=== PATIENT | male | born 1975 | race Caucasian/White ===

== ENCOUNTER 2023-09-23 05:28 | Observation (INO) ==
--- NOTE | 2023-09-03 10:30 | PAT Medication Instructions ---
Medication Instructions Date of Service September 03, 2023 Home Medications escitalopram oxalate 10 mg tablet (Lexapro) 10 mg PO QAM escitalopram oxalate 20 mg tablet (Lexapro) 20 mg PO QAM Take morning of surgery With a small sip of water, OTHERWISE NOTHING TO EAT OR DRINK AFTER MIDNIGHT: escitalopram oxalate 10 mg tablet (Lexapro) 10 mg PO QAM escitalopram oxalate 20 mg tablet (Lexapro) 20 mg PO QAM Other Notes If you have any questions please call us at [phone] or [phone] or [phone] or [phone]
--- NOTE | 2023-09-07 11:09 | Anesthesiology Consultation ---
Date of Service September 07, 2023 Assessment & Plan (1) Encounter for pre-operative examination: Infectious disease screening: Per assessment on 09/07/23: No known infectious disease contacts or current infectious disease symptoms. No noted recent Covid positive test result. Chart Review Chart Review: Acceptable Risk for Surgery and Patient seen in Pre Admission Testing Teaching & Discussion Pre-Anesthesia Teaching/Discussion Notes: Instructed NPO after midnight before surgery,except medications with 15 cc of water. Medication instructions provided according to the PAT guidelines. History Surgery Operation Date: 09/23/23 07:15 Proposed Procedures p T10-T11 Posterior Lumbar Decompression, Instrumentation and Posterior Fusion, Local Bone Graft, Spinal Cord Monitoring - Adilson Neely MD Height/Weight Height: 5 ft 6 in Weight: 87.2 kg Allergies Allergy/AdvReac Type Severity Reaction Status Date / Time No Known Allergies Allergy Verified 08/27/23 10:33 Medications Home Medications Medication Instructions Recorded Confirmed Last Taken escitalopram oxalate 10 mg tablet 10 mg PO QAM 08/27/23 08/27/23 Unknown (Lexapro) escitalopram oxalate 20 mg tablet 20 mg PO QAM 08/27/23 08/27/23 Unknown (Lexapro) Past Medical History Medical History Anxiety History of COVID-19 04/2020- cold symptoms, resolved Exercise / Class Metabolic Activity II 4-5 Yardwork/Stairs/Walk up hill (one FS: No CP, no SOB) Past Surgical History Surgical History History of esophagogastroduodenoscopy (EGD) History of uvulopalatopharyngoplasty R/t hemangioma (Age 8) Hx of arthroscopy of left knee Hx of tonsillectomy Nausea and vomiting after administration of anesthetic agent Past Anesthesia History No Hx of Anesthesia Complications and No Family Hx of Anesthesia Complications History of PONV No Hx of Motion Sickness and History of PONV Social History Smoking Status: Never smoker Do You Dip or Chew Tobacco: No Hx Alcohol Use: No Hx Substance Use: No substance use type: does not use Review of Systems Patient denies chest pain, shortness of breath, dyspnea on exertion, fever, chills, cough, wheezing, palpitations. Physical Exam Vital Signs BP 115/78 P 75 TEMP 98.3 SP02 95%RA RESP 16 Physical Full cervical extension range of motion. Full TMJ range of motion. TMD > 3.5 finger breaths Mallampati Score 1 Dentition: missing molars, + cap Lungs: clear throughout to auscultation Cardiac: regular rate and rhythm, no murmurs noted Spine: normal Carotid arteries: negative bruit Extremities: no LE edema Trimmed san Lab Results Anesthesia Preop Results Results Anesthesia Widget: WBC 5.59 K/ul (4.8-10.8) 09/07/23 Hgb 15.6 g/dl (14.0-18.0) 09/07/23 Hct 45.3 % (42.0-52.0) 09/07/23 Plt 242 K/uL (130-400) 09/07/23 Na 139 mmol/L (136-145) 09/07/23 K 4.1 mmol/L (3.5-5.1) 09/07/23 Cl 104 mmol/L (98-107) 09/07/23 CO2 28 mmol/L (21-32) 09/07/23 BUN 15 mg/dl (6-23) 09/07/23 Creat 1.10 mg/dl (0.6-1.4) 09/07/23 Glucose Level 72 mg/dl (70-99(Fasting)) 09/07/23 PT 10.9 Seconds (9.0-12.0) 09/07/23 PTT 28 Seconds (21-31) 09/07/23 INR 1.0 (0.9-1.1) 09/07/23 Blood Type A Positive 09/07/23 Antibody Screen NEGATIVE 09/07/23 Testing Electrocardiogram Date: 09/07/23 SB at 59bpm. Rightward axis. Low voltage QRS.
[2023-09-23] MEDS: LR 60ML/HR IV SCH (06:08)
[2023-09-23] MEDS: LR 15ML/HR IV SCH (06:08)
[2023-09-23] MEDS ORDERED: HYDROmorphone INJ 1 MG/ML SYRINGE IV PRN (06:28)
[2023-09-23] MEDS ORDERED: fentaNYL citrate PF 100 MCG/2 ML VIAL IV PRN (06:28)
[2023-09-23] MEDS ORDERED: ONDANSETRON INJ 2 MG/ML 2 ML VIAL IV PRN ×2 (06:28→14:15)
[2023-09-23] MEDS ORDERED: PROMETHAZINE HCL 6.25 MG in SODIUM CHLORIDE 0.9% 50 ML IV PRN (06:28)
[2023-09-23] MEDS ORDERED: ATROPINE SULFATE 0.1 MG/ML 10ML SYR IV PRN (06:28)
[2023-09-23] MEDS ORDERED: ePHEDrine sulfate 50 MG/ML AMP IV PRN (06:28)
[2023-09-23] MEDS ORDERED: HYDROmorphone INJ 2 MG/ML SYR/VIAL IV PRN (06:28)
[2023-09-23] MEDS ORDERED: MIDAZOLAM HCL 1 MG/ML 2ML VIAL ONE (07:02)
[2023-09-23] MEDS ORDERED: SUCCINYLCHOLINE CHLORIDE 20 MG/ML 10 ML VIAL IV ONE (07:02)
[2023-09-23] MEDS ORDERED: ROCURONIUM BROMIDE 10 MG/ML 5 ML VIAL IV ONE ×2 (07:02→09:09)
[2023-09-23] MEDS ORDERED: PROPOFOL IV EMULSION 10 MG/ML 20 ML VIAL IV ONE ×8 (07:02→11:57)
[2023-09-23] MEDS ORDERED: fentaNYL citrate PF 100 MCG/2 ML VIAL ONE ×2 (07:02→08:54)
[2023-09-23] MEDS ORDERED: LIDOCAINE 2% 2 ML VIAL/AMP(20MG/ML) INFIL ONE (07:02)
[2023-09-23] MEDS ORDERED: KETAMINE HCL INJ 50 MG/ML 10 ML VIAL ONE (07:12)
[2023-09-23] MEDS ORDERED: ACETAMINOPHEN 1000 MG/100 ML IV IV ONE (07:12)
[2023-09-23] MEDS ORDERED: DexMEDEtomidine HCL IV 100 MCG/ML VIAL IV ONE (07:12)
--- NOTE | 2023-09-23 07:17 | History & Physical Bridge Note ---
Date of Service September 23, 2023 History & Physical Bridge Note I have examined the patient, reviewed the History & Physical and in the interval since the performance of the History & Physical I have noted the following changes of clinical significance: no changes noted Surgical procedure to include T10-11 decompression, instrumentation and fusion.
[2023-09-23] MEDS ORDERED: diphenhydrAMINE 50 MG/ML VIAL ONE (07:19)
[2023-09-23] MEDS: ceFAZolin 2000MG 2,000 MG/15 ML SYR IV SCH (08:00)
[2023-09-23] MEDS ORDERED: GLYCOPYRROLATE 0.2 MG/ML VIAL ONE (09:12)
[2023-09-23] MEDS ORDERED: DEXAMETHASONE SOD INJ 4 MG/ML VIAL ONE (10:05)
[2023-09-23] MEDS ORDERED: ONDANSETRON INJ 2 MG/ML 2 ML VIAL ONE (10:05)
[2023-09-23] MEDS ORDERED: ceFAZolin 330 MG/ML 1 GM VIAL ONE (12:00)
[2023-09-23] MEDS: THROMBIN 5000 UNITS KIT ONE (12:00)
[2023-09-23] MEDS: VANCOMYCIN HCL 1000MG/20ML VIAL ONE (12:00)
[2023-09-23] MEDS: ceFAZolin 2000MG 2,000 MG/15 ML SYR IV ONE (12:00)
[2023-09-23] MEDS: GELATIN SPONGE 12-7MM ONE (12:35)
[2023-09-23] MEDS: BUPIVACAINE/EPINEPHRINE 0.5% MPF 1:200,000 30 ML VIAL ONE (12:35)
[2023-09-23] MEDS: FLOSEAL HEMOSTATIC MATRIX 10ML TOP ONE (12:35)
[2023-09-23] MEDS ORDERED: SUGAMMADEX SODIUM 200 MG/2 ML VIAL IV ONE (12:35)
[2023-09-23] MEDS ORDERED: HYDROmorphone INJ 2 MG/ML SYR/VIAL ONE (12:53)
--- NOTE | 2023-09-23 13:16 | Post Operative Brief Note ---
PG Immediate Post Op with CF Date of Surgery September 23, 2023 Pre & Post Diagnosis Operation Date: 09/23/23 07:15 Pre-Op Diagnosis: 1. Myelopathy concurrent and due to spinal stenosis of thoracic region 2. Degenerative thoracic spinal stenosis Post-Op Diagnosis: 1. Myelopathy concurrent and due to spinal stenosis of thoracic region 2. Degenerative thoracic spinal stenosis I identified the patient and participated in the time-out.: Yes Procedure Operation Date: 09/23/23 07:15 Actual Procedures p T10-T11 Posterior Lumbar Decompression, Instrumentation, and Posterior Fusion with Local Bone Graft and Spinal Cord Monitoring(Not Applicable) - Adilson Neely MD Surgeon Adilson Neely MD Car Pusher none Estimated Blood Loss 100 Findings Consistent with Post-Op Diagnosis Specimens Specimen Description: No specimen per surgeon Drains Yarbrough Catheter (Inserted after induction of anesthesia by Nereyda Light RN; 10 cc in balloon; clear, yellow urine returned)
--- NOTE | 2023-09-23 13:18 | Fluoroscopy Report ---
FL lumbar spine 2-3V CLINICAL HISTORY: T10-T11 DECOMPRESSION COMPARISON STUDY: Thoracic spine MRI July 01, 2023. Thoracic spine CT August 21, 2023. FLUOROSCOPY TIME: 2 minutes and 46 seconds. Ka, r: 95.60 mGy FLUOROSCOPIC IMAGES: 8 FINDINGS: Fluoroscopy was provided during T10-T11 decompression and fusion. T10-T11 level was localiz ed with subsequent posterior decompression bilateral pedicle screw fusion. The hardware is intact. IMPRESSION: Fluoroscopy provided during T10-T11 decompression and fusion. ACT 112: Negative or not required by law. Electronically signed by: Adrian Pearson M.D. 09/23/2023 1:16 PM
[2023-09-23] MEDS ORDERED: HYDROmorphone INJ 0.5 MG/0.5 ML SYR IV PRN ×2 (14:15)
[2023-09-23] MEDS ORDERED: oxyCODONE HCL IR 5 MG TAB (IMMEDIATE RELEASE) PO PRN (14:15)
[2023-09-23] MEDS ORDERED: ACETAMINOPHEN 500 MG TAB PO PRN (14:15)
[2023-09-23] MEDS: SCOPOLAMINE 1 MG/72 HR TDSY PATCH TD ONE ×2 (14:28→15:07)
--- NOTE | 2023-09-23 15:01 | Anesthesiology Progress Note ---
Date of Service September 23, 2023 Anesthesia Post Procedure Vital Signs Vital Signs: Temp Pulse Pulse Resp BP Pulse Ox O2 Del Method 09/23/23 14:46 36.4 C L 57 L 16 125/80 94 Nasal Cannula 09/23/23 14:10 Nasal Cannula 09/23/23 14:10 36.6 C 56 L 14 120/77 93 Nasal Cannula 09/23/23 13:55 36.4 C L 59 L 16 118/78 97 Nasal Cannula 09/23/23 13:45 58 L 16 114/79 95 Nasal Cannula 09/23/23 13:35 57 L 18 132/87 97 Oxymask 09/23/23 13:25 56 L 16 131/82 99 Oxymask 09/23/23 13:15 57 L 18 117/91 98 Oxymask 09/23/23 13:09 36.2 C L 51 L 18 124/76 99 Oxymask 09/23/23 05:56 36.8 C 72 20 129/84 97 Room Air O2 Flow Rate 09/23/23 14:46 2 09/23/23 14:10 2 09/23/23 14:10 2 09/23/23 13:55 2 09/23/23 13:45 2 09/23/23 13:35 4 09/23/23 13:25 4 09/23/23 13:15 6 09/23/23 13:09 6 09/23/23 05:56 Transfer of Care Handoff Completed per policy Notes Mental Status: alert / awake / arousable and participated in evaluation Patient Amnestic to Procedure: Yes Nausea / Vomiting: adequately controlled Pain: adequately controlled Airway Patency, RR, SpO2: stable & adequate BP & HR: stable & adequate Hydration State: stable & adequate Anesthetic Complications: no major complications apparent
[2023-09-23] MEDS: ceFAZolin 1000MG 1,000 MG/7.5 ML SYR IV SCH (15:12)
[2023-09-23] MEDS ORDERED: CHECK SCOPOLAMINE PATCH PLACEMENT SCH (16:00)
[2023-09-23] MEDS: METOCLOPRAMIDE HCL INJ 5 MG/ML 2 ML VIAL IV SCH (16:12)
[2023-09-23] MEDS: oxyCODONE HCL IR 5 MG TAB (IMMEDIATE RELEASE) PO PRN (18:07)
[2023-09-24 06:58] LABS: BUN Creatinine Ratio 15.2 (10-20); Calcium 8.9 mg/dl (8.6-10.3); Creatinine Clr Calc Pharmacy 88.9 ml/min; Est GFR (African American) 96.8 ml/min; Est GFR (Non-African American) 83.5 ml/min; Potassium 4.5 mmol/L (3.5-5.1)
[2023-09-24] MEDS: ESCITALOPRAM OXALATE 20 MG TAB PO SCH (08:16)
[2023-09-24] MEDS: ESCITALOPRAM OXALATE 10 MG TAB PO SCH (08:16)
--- NOTE | 2023-09-24 09:56 | Orthopedic Progress Note ---
Date of Service September 24, 2023 Assessment & Plan (1) Status post spinal surgery: Overall, he is doing quite well today with good pain control to the thoracic spine/lower back/lower extremities. He will work with physical therapy later this morning to work on ambulation and range of motion exercises. He can be discharged home later this morning pending formal physical therapy evaluation and recommendations. He will follow-up in [address] Neely for postoperative management. Subjective . Clem was seen and evaluated this morning resting comfortably in no apparent distress. He notes that he does have postsurgical pain to the back but he does note some improvement of his radicular symptoms that he was experiencing preoperatively down his right leg. He also notes that the back does feel like a different type of pain. He notes that he has been out of bed and ambulating with no significant issues. He has yet to be seen by physical therapy this morning. He denies any other concerns today. Review of Systems All systems reviewed & are unremarkable except as noted in HPI & below. Physical Exam . On physical examination of the back as well as the lower extremity, dressings are clean, dry, intact. Motor and sensory function grossly intact to the bilateral lower extremities. Intact plantarflexion dorsiflexion bilaterally. +2 DP and PT pulse. Less than 2-second capillary refill. Normal sensation. Neurovascular intact. Results & Data Results & Data Laboratory Results . Diagnostic Findings . PG Care Time/CCT Total # of Minutes Spent Total Time Spent with Patient: Total time spent is greater than 50% in coordination of care (as documented) at patient's floor/unit and/or counseling patient: Coding Level of Care Code 51238 Post Operative Follow-Up Diagnoses Status post spinal surgery Z98.890
--- NOTE | 2023-09-24 09:57 | Discharge Summary ---
Date of Service September 24, 2023 Principal Diagnosis Same as "Discharge Diagnosis" noted below under Discharge Instructions. Discharge Exam . On physical examination of the back as well as the lower extremity, dressings are clean, dry, intact. Motor and sensory function grossly intact to the bilateral lower extremities. Intact plantarflexion dorsiflexion bilaterally. +2 DP and PT pulse. Less than 2-second capillary refill. Normal sensation. Neurovascular intact. Discharge Data Procedures Performed Operation Date: 09/23/23 07:15 Actual Procedures p T10-T11 Posterior Lumbar Decompression, Instrumentation, and Posterior Fusion with Local Bone Graft and Spinal Cord Monitoring(Not Applicable) - Adilson Neely MD Ordered Studies 09/23/23 07:15 [place] lumbar spine 2-3V Routine Hospital Course (1) Status post spinal surgery: On September 23, 2023 Clem arrived at [facility] and underwent a T10- T11 posterior lumbar decompression, instrumentation, and posterior fusion with local bone graft and spinal cord monitoring performed by Dr. Neely with no complications. He had a general anesthetic. Postoperatively, he was transferred to the PACU for immediate postoperative management and then transferred to the general orthopedic floor in stable condition. His hospital course was uneventful. On postoperative day #1, his vital signs are stable and his pain was well-controlled. He participated well with physical therapy working on ambulation and range of motion exercises. He was then discharged home in stable condition. He will follow-up with Dr. Neely in 2 weeks for postoperative management. PG Care Time/CCT Total # of Minutes Spent Total Time Spent with Patient: Total time spent is greater than 50% in coordination of care (as documented) at patient's floor/unit and/or counseling patient: Discharge Plan Discharge Items Patient Disposition: Home - Self-Care Reason For Visit: Thoracic Pain, Low Pack Pain Radiating to Right Lo Discharge Diagnosis: Same Activity: Per Instructions section Non-emergency contact: Surgeon Call non-emergency contact if: your temperature is above 101.5, your wound has increased redness, your wound has increased drainage and your wound pain has increased Follow-up/Referrals: Petey Jeffery M.D. [Primary Care Provider] - Diet: Regular Addtl Attending Provider Instructions: Please follow Dr. Neely Post Operative Instructions that were given in the office upon scheduling surgery. -Dressings will be changed prior to discharge. -Keep Surgical site dry for the next 3 days. -May shower after 3 days with no soaking of the surgical site -May leave surgical site open to air if dry. -Cover the surgical site with a bandage if draining or getting caught on clothes. -Take it easy for the next 2 weeks. (Ex: No Lifting, running, bending, or twisting, etc.). -You will F/u with Dr. Neely in 2 weeks for postoperative care. -If any questions or concerns in the mean time, Reach out to [facility] at [phone] Pending Studies at Discharge: No Stand-Alone Forms: My [facility] [employer], Smoking Cessation Medications and DC Order Prescriptions: New oxycodone 5 mg Tablet 5 mg PO Q6H PRN (Reason: pain) Qty: 24 0RF Continued escitalopram oxalate [Lexapro] 10 mg Tablet 10 mg PO QAM Rx Instructions: combined for daily dose 30mg escitalopram oxalate [Lexapro] 20 mg Tablet 20 mg PO QAM Rx Instructions: combined for daily dose 30mg Discharge Orders: Discharge Order (Routine); Ordered 09/24/23 Ordered By: Raheem Henry/Other Patient Handouts: DVT Post Op Prevention Admission Data Admit Date/Time: 09/23/23 13:12 Attending Provider: Adilson Neely Admit Provider: Adilson Neely Primary Care Provider: Petey Jeffery Other Interventions: Discharge Summary Assessment (RN) Last Done: 09/24/23 13:37
--- NOTE | 2023-09-25 19:37 | Operative Report ---
PG Post Operative Report Pre & Post Diagnosis Operation Date: 09/23/23 07:15 Pre-Op Diagnosis: 1. Myelopathy concurrent and due to spinal stenosis of thoracic region 2. Degenerative thoracic spinal stenosis Post-Op Diagnosis: 1. Myelopathy concurrent and due to spinal stenosis of thoracic region 2. Degenerative thoracic spinal stenosis I identified the patient and participated in the time-out.: Yes Procedure Operation Date: 09/23/23 07:15 Actual Procedures p T10-T11 Posterior Lumbar Decompression, Instrumentation, and Posterior Fusion with Local Bone Graft and Spinal Cord Monitoring(Not Applicable) - Adilson eNely MD Surgeon Adilson Neely MD Lift Truck Operator none Estimated Blood Loss 100 Findings Consistent with Post-Op Diagnosis Specimens None Description of Procedure 1. T10 laminectomy with decompression of spinal canal. (72671) 2. T10-11 posterolateral arthrodesis. (91384) 3. T10-11 posterior nonsegmental instrumentation, NuVasive reline (49641) 4. Utilization of products of decompression for fusion, autograft. (87530) Patient was taken the operating room and after adequate anesthesia was carefully positioned on the Ney frame and checked for positioning. Preprepped was performed in the thoracolumbar region followed by bringing in fluoroscopy right use this to james for the incision, additional care was taken to accurately count from the sacrum. Once the incision was marked, prep and drape was performed, I began the procedure with the midline incision taken down to the subcutaneous tissues and then down to the region of the spinous processes. Paraspinal musculature was then mobilized on either side of the interlaminar region and lamina of T10 and T11, our location was confirmed fluoroscopically with multiple views. Once these areas were marked, I began with utilizing fluoroscopy to aid in placement of pedicle screw fixation. High-speed bur was used to make the start point followed by gearshift probes, monitoring use utilized to confirm accurate placement of the instrumentation along with fluoroscopy. 5.5 millimeter screws in diameter were utilized at both levels after tapping and monitoring confirmed greater than 20 on the readings. With the instrumentation in place, I then began the procedure for the decompression. The spinous process was removed at T10 followed by then using a high-speed bur to thin and remove the lamina of T10 moving cephalad and along the medial facets on both sides which were the main contributing source of stenosis at this level. The bone dust was collected and added to the fusion materials. I continued with the laminectomy, and then utilized curettes and Kerrison punches to complete the decompression going from the superior laminar edge of T11 cephalad and T10, the borders were marked with fluoroscopic image completed decompression across the T10-11 interspace region where the stenosis was present. Decompression also continued laterally along the medial aspect the facets completing the decompression. Inspection revealed no evidence of any CSF leakage, according to monitoring there was no change in the readings before after the decompression and instrumentation. Operative site was irrigated thoroughly, I then inserted the tyra fixation and torqued properly. The areas of fusion posterolaterally had been decorticated and fusion materials then placed on both sides. Floseal was placed over the decompression area, local anesthetic was injected, vancomycin was placed in the operative area and also in the layers of closure using 0 Vicryl sutures reattaching the supraspinous ligament were available, and additional layer of 0 Vicryl sutures 2-0 Vicryl sutures and steven for the skin. Sterile dressing was applied, patient tolerated procedure well and was taken recovery room. I attest to the content of the Intraoperative Record and any orders documented therein. Any exceptions are noted below.
== END 2023-09-24 15:18 | disposition home or self-care (01) ==
LOC: ASU 05:28 → 3E 05:28